=== PATIENT | male | born 1985 | race Caucasian/White ===

== ENCOUNTER 2021-12-07 17:11 | Emergency (ER) | payer MEDICAID ==
--- NOTE | 2021-12-07 17:56 | NUR ---
CALLED X 1. NO SHOW. Addendum: 12/07/21 at 1833 by [facility] PATIENT LEFT WITHOUT BEING SEEN BY . NO FURTHER CARE PROVIDED FOR PATIENT.
--- NOTE | 2021-12-07 18:15 | NUR ---
CALLEDX2. NO SHOW.
--- NOTE | 2021-12-07 18:31 | NUR ---
CALLEDX3. NO SHOW.
== END 2021-12-07 17:56 | disposition left against medical advice (07) ==
LOC: MED 17:11
DX: R06.02 Shortness of breath (principal); E16.2 Hypoglycemia, unspecified; Z53.21 Procedure and treatment not carried out due to patient leaving prior to being seen by health care provider